=== PATIENT | male | born 2000 | race Caucasian/White ===

== ENCOUNTER 2025-02-08 23:17 | Emergency (ER) | payer MEDICARE ==
[~2025-02-08] VITALS: Ht 175.3 cm; Wt 82.4 kg
[2025-02-08 23:36] VITALS: O2SAT 98
[2025-02-09] MEDS: LIDOCAINE 5% PATCH TOP SCH (00:30)
[2025-02-09] MEDS: KETOROLAC 15MG/ML VIAL IM ONE (01:56)
[2025-02-09] MEDS ORDERED: NAPR-1176 MT (01:59)
[2025-02-09] MEDS ORDERED: LIDO-53 TP (01:59)
[2025-02-09 02:42] VITALS: BP 121/73; PULSE 71; RESP 18; TEMP 36.7; O2SAT 99
== END 2025-02-09 02:44 | disposition home or self-care (01) ==
LOC: EDSEX 23:17 → ER 23:17
DX: M25.571 Pain in right ankle and joints of right foot (principal); Z79.1 Long term (current) use of non-steroidal anti-inflammatories (NSAID)
CPT/HCPCS: 99284; 73590; 73610; 96372; J1885